=== PATIENT | male | born 1995 | race Caucasian/White ===

== ENCOUNTER → 2018-01-01 | Outpatient (CLI) | payer OTHER ==
[~2018-01-01] MED LIST: ASPI-1471 PO; CYCL25CA5 PO; CYCL50CA5 PO; LISI-362 PO; LISI5TAB25 PO; SIRO0.5T3 PO
[2018-01-01 07:56] LABS: PLATELET COUNT, AUTOMATED 184 K/uL (150-450)
== END ==
LOC: LAB 07:30
PROVIDERS: ATTEND Internal Medicine Cardiovascular Disease
DX: Z51.81 Encounter for therapeutic drug level monitoring (principal); Z79.899 Other long term (current) drug therapy; Z48.21 Encounter for aftercare following heart transplant; D89.9 Disorder involving the immune mechanism, unspecified; Z94.1 Heart transplant status
CPT/HCPCS: 36415; 80158; 80195; 82310; 82374; 82435; 82565; 82947; 83735; 84132; 84295; 84520; 85025

== ENCOUNTER 2018-01-10 20:41 | Emergency (ER) | payer OTHER ==
[2018-01-10 20:44] VITALS: BP 149/103
[2018-01-10] MEDS ORDERED: ATOR10TA24 PO (20:47)
--- NOTE | 2018-01-10 20:47 | ER Report ---
History and Physical Time Seen By MD: 20:47 Hx. of Stated Complaint: PT CUT LEFT POINTER FINGER WITH KNIFE. HPI/ROS CHIEF COMPLAINT: Left index finger laceration HISTORY OF PRESENT ILLNESS: 22-year-old male patient persists to emergency room with complaint of laceration to the left index finger. Patient was trying to open a ranch bottle with a knife when the knife slipped cutting his left index finger. Patient states he has no problems moving his fever. He has no numbness or tingling. Patient states he believes his last tetanus shot was within the last 5 years but was unsure. Patient did apply pressure to the wound prior to coming to the emergency room, but was unable to get the bleeding stopped. 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 Reviewed Nurses Notes: Yes Smoking Status: Never Smoker Constitutional Vital Sign - Last 24 Hours 01/10/18 01/10/18 01/10/18 01/10/18 20:43 20:44 20:56 21:11 Temp 97.9 Pulse 80 87 Resp 14 B/P (MAP) 149/103 (118) 149/103 Pulse Ox 93 95 97 O2 Delivery Room Air Physical Exam General appearance: Alert no distress. Respiratory: Chest is non tender, lungs are clear to auscultation. Cardiac: Regular rate and rhythm. Skin: Patient has 1.5 cm laceration to the left index finger on the lateral side. Patient has good strength with flexion and extension. No numbness and tingling. It does go into the subcutaneous tissue. DIFFERENTIAL DIAGNOSIS: After history and physical exam differential diagnosis was considered for laceration Medical Decision Making ED Course/Re-evaluation ED Course Patient was admitted to exam room, history and physical were obtained. Differential diagnoses were considered. On examination patient does have a 1.5 cm laceration to the left lateral index finger. It does go into the subcutaneous tissue. Patient has no difficulty with flexion and extension. There is no numbness and tingling. The finger was anesthetized, cleaned and repaired described below. Patient tolerated procedure well. We'll go ahead and discharge him home at this time. 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 We'll go ahead and use Keflex. He is to follow-up with his primary care provider in 7-10 days get sutures removed. He is to monitor for any signs of infection. I discussed this with patient who verbalized understanding and agreement with plan. Procedure: Laceration repair. Verbal consent was obtained from the patient. The 1.5 cm laceration on the lateral left index finger was anesthetized in the usual fashion. The wound was scrubbed, draped and explored to its base with a gloved finger. There were no deep structures involved. No tendon injury was identified. The wound was repaired with 4 simple interrupted sutures using 4-0 Prolene material. The wound repair was simple. The procedure was performed by myself. Decision to Disposition Date: Jan 10, 2018 Decision to Disposition Time: 21:15 Depart Departure Latest Vital Signs Vital Signs Date Time Temp Pulse Resp B/P (MAP) Pulse Ox O2 Delivery O2 Flow Rate FiO2 01/10/18 21:11 87 97 01/10/18 20:44 97.9 14 149/103 Room Air Impression: Primary Impression: Laceration of finger Condition: Improved Disposition: HOME OR SELF-CARE New Scripts Cephalexin 500 Mg Tab (KEFLEX 500 MG TAB) 500 Mg Tablet 500 MG PO Q6H, #28 TAB Prov: NITHIN MONTENEGRO 01/10/18 Patient Instructions: Finger Laceration (ED) Additional Instructions: Keep wound dry for 48 hours. Follow up with your primary care provider in the next 7-10 days to have sutures removed. Monitor for signs of infection; redness, swelling, heat, discharge, increasing pain or red streaking. Take Tylenol or Ibuprofen as needed for pain. Return to the ER with any concerns. You may change dressing as needed. Problem Qualifiers Primary Impression: Laceration of finger Encounter type: initial encounter Finger: index finger Damage to nail status: without damage Foreign body presence: without foreign body Laterality: left Qualified Codes: S61.211A - Laceration without foreign body of left index finger without damage to nail, initial encounter NITHIN MONTENEGRO [employer]WE[employer] MACHINERY INSTRUCTOR Jan 10, 2018 20:47
[2018-01-10] MEDS ORDERED: DIPHTH/TETANUS/ACEL. PERTUSSIS IM ONLY ONE (21:00)
[2018-01-10] MEDS ORDERED: CEPH500T7 PO (21:14)
[2018-01-10] MEDS ORDERED: CEPHALEXIN 500 MG CAP TH 2 CAP/BOTTLE PO ONE (21:15)
[2018-01-10] MEDS ORDERED: ACETAMINOPHEN 500 MG TAB PO ONE (21:30)
== END 2018-01-10 21:44 | disposition home or self-care (01) ==
LOC: ER 20:41
DX: S61.211A Laceration without foreign body of left index finger without damage to nail, initial encounter (principal); I50.9 Heart failure, unspecified; W26.0XXA Contact with knife, initial encounter; Z79.82 Long term (current) use of aspirin; Z79.899 Other long term (current) drug therapy
CPT/HCPCS: 90471; 90715; 99283

== ENCOUNTER → 2018-04-22 | Outpatient (CLI) | payer OTHER ==
[~2018-04-22] MED LIST changes: +ATOR10TA24 PO; +CEPH500T7 PO
[2018-04-22 09:02] LABS: PLATELET COUNT, AUTOMATED 144 K/uL (150-450)
== END ==
LOC: LAB 08:33
PROVIDERS: ATTEND Nurse Practitioner Adult Health
DX: Z51.81 Encounter for therapeutic drug level monitoring (principal); Z48.21 Encounter for aftercare following heart transplant; Z79.899 Other long term (current) drug therapy; D89.9 Disorder involving the immune mechanism, unspecified; Z94.1 Heart transplant status
CPT/HCPCS: 36415; 80158; 80195; 82310; 82374; 82435; 82565; 82947; 83735; 84132; 84295; 84520; 85025

== ENCOUNTER 2018-07-03 19:41 | Emergency (ER) | payer OTHER ==
--- NOTE | 2018-07-03 19:44 | ER Report ---
History and Physical Time Seen By MD: 19:54 HPI/ROS CHIEF COMPLAINT: Chest pressure and shortness of breath HISTORY OF PRESENT ILLNESS: This is a 23 year old male. He started having onset of substernal chest pressure today with feeling like he could not take a deep breath. REVIEW OF SYSTEMS: Constitutional: [No fever or chills.] Eyes: [No discharge.] [No vision changes.] ENT: [No sore throat.] [No congestion.] [No hearing changes.] Cardiovascular: [No chest pain.] [No palpitations.] Respiratory: [No cough.] [No shortness of breath.] Gastrointestinal: [No abdominal pain.] [No nausea or vomiting.] [No change in bowel movements.] [No blood in the stool or melena.] Genitourinary: [No dysuria.] [No hematuria.] [No frequency] Musculoskeletal: [No back pain.] [No extremity pain.] Skin: [No rashes.] [No bruising.] Neurological: [No numbness.] [No weakness.] [No headache.] Allergies: Coded Allergies: acetaminophen (Verified Allergy, Intermediate, can't take with current medications., 07/03/18) ibuprofen (Verified Adverse Reaction, Intermediate, CANNOT TAKE WITH CURRENT MEDS, 01/10/18) Home Meds Reported Medications Cyclosporine, Modified (CYCLOSPORINE) 50 Mg Capsule, 100 MG PO BID, CAPSULE 07/03/18 Atorvastatin Calcium (LIPITOR) 10 Mg Tablet, 1 TAB PO QDAY, TAB 01/10/18 Lisinopril (LISINOPRIL) 10 Mg Tablet, 10 MG PO QDAY, TAB 10/09/17 Sirolimus (RAPAMUNE) Unknown Strength Tablet, 1 MG PO QDAY 10/09/17 Aspirin (ASPIR 81) 81 Mg Tablet.dr, 1 TAB PO QDAY, TAB 10/09/17 Discontinued Reported Medications Cyclosporine, Modified (CYCLOSPORINE MODIFIED) 25 Mg Capsule, 25 MG PO DIRECTED for 30 Days, CAPSULE 100 mg in am and 75 mg in pm 10/09/17 Discontinued Scripts Cephalexin 500 Mg Tab (KEFLEX 500 MG TAB) 500 Mg Tablet, 500 MG PO Q6H, #28 TAB Prov:NITHIN MONTENEGRO ASSEMBLER PING [employer]ONG TABLE 01/10/18 Past Medical/Surgical History Depression with anxiety, history of heart transplant at 6 weeks of age on immunosuppression Reviewed Nurses Notes: Yes Smoking Status: Never Smoker Hx Substance Use Disorder: No Hx Alcohol Use: No Constitutional Vital Sign - Last 24 Hours 07/03/18 07/03/18 07/03/18 07/03/18 19:45 19:56 20:00 20:11 Temp 98.1 Pulse 96 117 91 Resp 24 20 16 B/P (MAP) 156/95 170/104 (126) Pulse Ox 98 99 97 O2 Delivery Room Air 07/03/18 07/03/18 07/03/18 07/03/18 20:26 20:30 20:35 20:40 Pulse 96 90 95 Resp 14 13 20 B/P (MAP) 141/79 (99) 133/70 (91) Pulse Ox 98 98 98 07/03/18 07/03/18 07/03/18 07/03/18 20:41 20:43 20:50 21:00 Pulse 95 92 90 Resp 20 20 28 B/P (MAP) 125/87 (100) 117/88 (98) 140/83 (102) Pulse Ox 100 98 97 O2 Delivery Room Air Room Air 07/03/18 07/03/18 07/03/18 07/03/18 21:05 21:25 21:30 21:35 Pulse 88 82 Resp 9 18 B/P (MAP) 133/88 (103) 126/77 (93) Pulse Ox 93 97 07/03/18 07/03/18 07/03/18 07/03/18 21:40 21:55 22:00 22:10 Pulse 80 78 83 Resp 10 14 14 B/P (MAP) 141/75 (97) Pulse Ox 96 93 93 07/03/18 07/03/18 07/03/18 07/03/18 22:25 22:30 22:40 22:55 Pulse 81 84 84 Resp 10 15 12 B/P (MAP) 122/79 (93) Pulse Ox 90 92 91 07/03/18 07/03/18 07/03/18 07/03/18 23:00 23:10 23:25 23:30 Pulse 81 85 Resp 7 12 B/P (MAP) 131/77 (95) 117/84 (95) Pulse Ox 93 95 Intake and Output 0 07/03/18 07/03/18 07/04/18 15:00 23:00 07:00 Intake Total 1000 ml Balance 1000 ml Physical Exam General Appearance: The patient is alert. No acute distress. Very anxious. Eyes: Pupils are equal, round. Reactive to light. No pallor, injection or icterus. Extraocular movements are intact. ENT: Mucous membranes are moist. Normal oral mucosa. Posterior oropharynx is normal. Normal tympanic membranes and canals. Neck: Supple and non tender. Respiratory: Lungs are clear to auscultation. Cardiovascular: Regular rate and rhythm. No murmurs, gallops or rubs. Normal capillary refill. Gastrointestinal: Abdomen is soft and non tender. Nondistended. Normal active bowel sounds. Neurological: Alert and oriented x3. No focal neurologic deficits Skin: Warm and dry. No rashes. Old surgical scar of the central chest. Musculoskeletal: Extremities are nontender. DIFFERENTIAL DIAGNOSIS: After history and physical exam, differential diagnosis was considered for chest pain and shortness of breath including but not limited to myocardial ischemia, pulmonary embolus, chest wall pain, pleural inflammation and pulmonary infectious causes. Consider anxiety attack. Medical Decision Making Data Points Result Diagram: 07/03/18205707/03/182057 Laboratory Hematology Test 07/03/18 20:49 07/03/18 20:58 Influenza Virus Type A (PCR) Negative (NEGATIVE) Influenza Virus Type B (PCR) Negative (NEGATIVE) Red Blood Count 5.23 M/uL (4.00-5.60) Mean Corpuscular Volume 85.4 fL (80.0-96.0) Mean Corpuscular Hemoglobin 29.2 pg (26.0-33.0) Mean Corpuscular Hemoglobin Concent 34.2 g/dL (32.0-36.0) Red Cell Distribution Width 13.5 % (11.5-14.5) Mean Platelet Volume 8.5 fL (7.2-11.1) Neutrophils (%) (Auto) 67.9 % (39.4-72.5) Lymphocytes (%) (Auto) 20.6 % (17.6-49.6) Monocytes (%) (Auto) 9.7 % (4.1-12.4) Eosinophils (%) (Auto) 0.8 % (0.4-6.7) Basophils (%) (Auto) 1.0 % (0.3-1.4) Nucleated RBC Relative Count (auto) 0.1 /100WBC Neutrophils # (Auto) 3.8 K/uL (2.0-7.4) Lymphocytes # (Auto) 1.2 K/uL (1.3-3.6) Monocytes # (Auto) 0.6 K/uL (0.3-1.0) Eosinophils # (Auto) 0.0 K/uL (0.0-0.5) Basophils # (Auto) 0.1 K/uL (0.0-0.1) Nucleated RBC Absolute Count (auto) 0.00 K/uL D-Dimer Quantitative (PE/DVT) 0.39 ug/ml (0-0.50) Sodium Level 139 mmol/L (137-145) Potassium Level 3.7 mmol/L (3.5-5.0) Chloride Level 108 mmol/L (98-107) Carbon Dioxide Level 23 mmol/L (22-30) Blood Urea Nitrogen 23 mg/dl (9-21) Creatinine 1.30 mg/dl (0.66-1.25) Glomerular Filtration Rate Calc > 60.0 Random Glucose 98 mg/dl (75-110) Calcium Level 10.1 mg/dl (8.4-10.2) Total Bilirubin 1.0 mg/dl (0.2-1.3) Aspartate Amino Transf (AST/SGOT) 29 U/L (0-35) Alanine Aminotransferase (ALT/SGPT) 14 U/L (0-56) Alkaline Phosphatase 108 U/L (0-126) Troponin I < 0.012 ng/ml Total Protein 8.4 g/dl (6.3-8.2) Albumin 4.8 g/dl (3.5-5.0) Chemistry Test 07/03/18 20:49 07/03/18 20:58 Influenza Virus Type A (PCR) Negative (NEGATIVE) Influenza Virus Type B (PCR) Negative (NEGATIVE) White Blood Count 5.7 k/uL (4.5-11.0) Red Blood Count 5.23 M/uL (4.00-5.60) Hemoglobin 15.3 g/dL (14.0-18.0) Hematocrit 44.7 % (42.0-52.0) Mean Corpuscular Volume 85.4 fL (80.0-96.0) Mean Corpuscular Hemoglobin 29.2 pg (26.0-33.0) Mean Corpuscular Hemoglobin Concent 34.2 g/dL (32.0-36.0) Red Cell Distribution Width 13.5 % (11.5-14.5) Platelet Count 201 K/uL (150-450) Mean Platelet Volume 8.5 fL (7.2-11.1) Neutrophils (%) (Auto) 67.9 % (39.4-72.5) Lymphocytes (%) (Auto) 20.6 % (17.6-49.6) Monocytes (%) (Auto) 9.7 % (4.1-12.4) Eosinophils (%) (Auto) 0.8 % (0.4-6.7) Basophils (%) (Auto) 1.0 % (0.3-1.4) Nucleated RBC Relative Count (auto) 0.1 /100WBC Neutrophils # (Auto) 3.8 K/uL (2.0-7.4) Lymphocytes # (Auto) 1.2 K/uL (1.3-3.6) Monocytes # (Auto) 0.6 K/uL (0.3-1.0) Eosinophils # (Auto) 0.0 K/uL (0.0-0.5) Basophils # (Auto) 0.1 K/uL (0.0-0.1) Nucleated RBC Absolute Count (auto) 0.00 K/uL D-Dimer Quantitative (PE/DVT) 0.39 ug/ml (0-0.50) Glomerular Filtration Rate Calc > 60.0 Calcium Level 10.1 mg/dl (8.4-10.2) Total Bilirubin 1.0 mg/dl (0.2-1.3) Aspartate Amino Transf (AST/SGOT) 29 U/L (0-35) Alanine Aminotransferase (ALT/SGPT) 14 U/L (0-56) Alkaline Phosphatase 108 U/L (0-126) Troponin I < 0.012 ng/ml Total Protein 8.4 g/dl (6.3-8.2) Albumin 4.8 g/dl (3.5-5.0) Coagulation Test 07/03/18 20:58 D-Dimer Quantitative (PE/DVT) 0.39 ug/ml EKG/Imaging EKG Interpretation 12 lead EKG: Rhythm: Normal sinus rhythm, rate 87 [place]: normal QRS: Right bundle branch block ST segments: normal Imaging Examination: CHEST PA LAT Comparison: None. History: Chest pressure and shortness of breath. History of a heart transplant at 6 months of age. Findings: Cardiac and hilar contour size is within normal limits. Sternotomy wires are midline. No consolidation, nodule, or peribronchial inflammation. No pneumothorax, edema, or effusion. Osseous structures are intact. IMPRESSION: No evidence of acute cardiopulmonary disease. Report Dictated By: Hayder Mc MD at 07/03/2018 9:32 PM ED Course/Re-evaluation Clinical Indication for ER IV: Hydration, IV Access ED Course Mild dehydration. Negative labs including troponin and d-dimer. X-ray is negative. Patient feels much better. This appears to have been an anxiety/panic attack. No medicines recommended this time. Discharged in good condition. Decision to Disposition Date: Jul 03, 2018 Decision to Disposition Time: 23:35 Depart Departure Latest Vital Signs Vital Signs Date Time Temp Pulse Resp B/P (MAP) Pulse Ox O2 Delivery O2 Flow Rate FiO2 07/03/18 23:30 117/84 (95) 07/03/18 23:25 85 12 95 07/03/18 20:43 Room Air 07/03/18 19:45 98.1 Impression: Primary Impression: Anxiety attack Condition: Improved Disposition: HOME OR SELF-CARE Referrals: LISA PECK MD (PCP) Patient Instructions: Anxiety (ED), Panic Attack (ED) MODESTO ANTOINE MD Jul 03, 2018 19:44
[2018-07-03] MEDS ORDERED: CYCL50CA5 PO (19:50)
[2018-07-03] MEDS ORDERED: NS(*) 0.9% 1000 ML BAG 1,000 ML IV ONE (20:40)
[2018-07-03 21:16] LABS: PLATELET COUNT, AUTOMATED 201 K/uL (150-450)
--- NOTE | 2018-07-03 21:38 | RADIOLOGY IMAGING REPORT ---
FACILITY: [facility] PATIENT NAME: Minh Dalton : 1995 MR: [id number] V: [id number] EXAM DATE: ORDERING PHYSICIAN: MODESTO ANTOINE TECHNOLOGIST: [place] [facility] [place]h [place] : 1995 Visit/Account:[id number] Date of Sevice: 07/03/2018 Examination: CHEST PA LAT Comparison: None. History: Chest pressure and shortness of breath. History of a heart transplant at 6 months of age. Findings: Cardiac and hilar contour size is within normal limits. Sternotomy wires are midline. No co nsolidation, nodule, or peribronchial inflammation. No pneumothorax, edema, or effusion. Osseous stru ctures are intact. IMPRESSION: No evidence of acute cardiopulmonary disease. Report Dictated By: Hayder Mc MD at 07/03/2018 9:32 PM Report E-Signed By: Hayder Mc MD at 07/03/2018 9:34 PM WSN:[id number]
--- NOTE | 2018-07-03 23:02 | EKG ---
FACILITY: [facility] PATIENT NAME: BERLIN CHAPPELL : [id number] MR: [id number] V: [id number] EXAM DATE: ORDERING PHYSICIAN: MODESTO ANTOINE TECHNOLOGIST: MELY Test Reason : CHEST PRESSURE Blood Pressure : / mmHG Vent. Rate : 087 BPM Atrial Rate : 087 BPM P-R Int : 134 ms QRS Dur : 152 ms QT Int : 418 ms P-R-T Axes : 070 049 011 degrees QTc Int : 502 ms Sinus rhythm Right bundle branch block Abnormal ECG No previous ECGs available Confirmed by NIKKI RODRIGUEZ ([id number] on 07/04/2018 5:39:06 AM Referred By: Confirmed By:NIKKI RODRIGUEZ
[2018-07-03 23:30] VITALS: BP 117/84
== END 2018-07-03 23:53 | disposition home or self-care (01) ==
LOC: ER 19:48
DX: F41.9 Anxiety disorder, unspecified (principal)
CPT/HCPCS: 71046; 84484; 85025; 85379; 87502; 93005; 96360; 99284; J7030; 82040; 82247; 82310; 82374; 82435; 82565; 82947; 84075; 84132; 84155; 84295; 84450; 84460; 84520

== ENCOUNTER → 2018-07-28 | Outpatient (CLI) | payer OTHER ==
[2018-07-28 08:42] LABS: PLATELET COUNT, AUTOMATED 164 K/uL (150-450)
== END ==
LOC: LAB 08:02
PROVIDERS: ATTEND Nurse Practitioner Adult Health
DX: Z51.81 Encounter for therapeutic drug level monitoring (principal); Z48.21 Encounter for aftercare following heart transplant; Z79.899 Other long term (current) drug therapy; D89.9 Disorder involving the immune mechanism, unspecified; Z94.1 Heart transplant status
CPT/HCPCS: 36415; 82310; 82374; 82435; 82565; 82947; 83735; 84132; 84295; 84520; 85025